=== PATIENT | female | born 1975 | race Caucasian/White ===

== ENCOUNTER → 2021-09-03 | Day surgery (SDC) | payer BC ==
[~2021-09-03] VITALS: Ht 165.1 cm; Wt 160.0 kg
[~2021-09-03] MED LIST: HYDROmorphone 2 MG/ML INJ. IVP PRN; IV RINGERS,LACTATED 1000ML 1,000 ML IV SCH; LIDOCAINE 2% PF 5 ML VIAL. ONE; MORPHINE SULFATE 2 MG/ML INJ. IVP PRN; PROCHLORPERAZINE 10 MG/2 ML VIAL. IVP PRN; PROPOFOL 10 MG/ML (20ML) VIAL. IV ONE; fentaNYL PF VIAL 100 MCG/2 ML VIAL IVP PRN
[2021-09-03 08:34] VITALS: BP 183/81
--- NOTE | 2021-09-03 09:16 | PREOP HP ---
DATE OF SERVICE: 09/03/2021 REQUESTING PHYSICIAN: Nelli Gore MD PRIMARY CARE PHYSICIAN: Nelli Gore MD REASON FOR PROCEDURE: Left upper quadrant pain, colon cancer screening and history of polyps. HISTORY OF PRESENT ILLNESS: This is a 45-year-old female who presents with left upper quadrant pain. She also has had some diarrhea as well as history of colon polyps. ALLERGIES: No known drug allergies. PAST MEDICAL HISTORY: Colon polyps. SOCIAL HISTORY: No tobacco, alcohol or IV drug abuse. MEDICATIONS: Metformin. REVIEW OF SYSTEMS: A 13-point review of systems was done, it was positive as per HPI, otherwise negative. PHYSICAL EXAMINATION: VITAL SIGNS: She is afebrile and her vital signs are stable. GENERAL: She is an obese female in no apparent distress. HEENT: Oropharynx clear. CARDIOVASCULAR: S1, S2. LUNGS: Clear. ABDOMEN: Normoactive bowel sounds, soft, nontender, nondistended. EXTREMITIES: No edema. NEUROLOGIC: Awake, alert and oriented x 3. ASSESSMENT AND PLAN: 1. History of colon polyps. 2. Left upper quadrant abdominal pain. We will proceed with upper endoscopy and colonoscopy for further evaluation. Risks and benefits including bleeding, perforation, non-diagnosis and sedation were explained and she has agreed to proceed. KARL DR: Timoteo TID: [id number]
[2021-09-03 10:20] VITALS: BP 144/89
--- NOTE | 2021-09-08 13:11 | PATHOLOGY ---
[facility] Accession Number: [id number] . 01 Material submitted: . PART A: small bowel - SMALL BOWEL BX PART B: ANTRUM - BX ANTRUM AND BODY. Modifiers: body PART C: esophagus - BX DISTAL ESOPHAGUS. Modifiers: distal PART D: cecum - BX CECAL POLYP PART E: ileum - BX TERMINAL ILEUM. Modifiers: TERMINAL PART F: colon - BX RIGHT COLON. Modifiers: right PART G: colon - DESCENDING COLON POLYP. Modifiers: descending PART H: colon - BX LEFT COLON. Modifiers: left . 01 Clinical history: . ABDOMINAL PAIN . 02 Diagnosis: A. Small bowel biopsy: - No diagnostic abnormalities. . B. Gastric biopsies, gastric antrum and gastric body: - Chronic gastritis, mild. . C. Esophageal biopsies, distal esophagus: - Reflux changes. . D. Colon biopsy, cecal polyp: - Hyperplastic polyp/prominent mucosal fold. . E. Terminal ileum biopsy: - No diagnostic abnormalities. . F. Colonic mucosa, right colon biopsy: - No diagnostic abnormalities. . G. Colon biopsy, descending colon polyp: - Hyperplastic polyp/prominent mucosal fold. . H. Colonic mucosa, left colon biopsies: - No diagnostic abnormalities. ([facility]; 09/08/2021) [facility] 09/08/2021 0925 Local . 02 Comment: Sections of the small bowel biopsy reveal segments of duodenal and small intestine mucosa. Where best oriented, the mucosal villi show no sprue-like changes or significant inflammatory changes. . Sections of the gastric biopsy reveal segments of gastric antral and antral/body transition mucosa showing congestion and mild chronic inflammation. A properly controlled immunoperoxidase stain for Helicobacter is negative for Helicobacter organisms. . Sections of the distal esophageal biopsy reveal a segment of hyperplastic squamous esophageal mucosa and segments of gastric mucosa showing mild to moderate chronic inflammation. The findings are consistent with reflux changes. There is no evidence of Ordonez's change, dysplasia, or malignancy. . Sections of the cecal polyp biopsy reveal segments of colonic mucosa consistent with hyperplastic polyp/prominent mucosal fold. There are no adenomatous changes or evidence of malignancy. . Sections of the terminal ileum biopsy reveal a segment of small intestine mucosa. Where best oriented, the mucosal villi show no sprue-like changes or significant inflammatory changes. . Sections of the right colon biopsy reveal segments of colonic mucosa containing a single mucosal-associated lymphoid aggregate. There is no evidence of a chronic destructive colitis, lymphocytic colitis, or collagenous colitis. . Sections of the descending colon polyp biopsy reveal segments of colonic mucosa consistent with hyperplastic polyp/prominent mucosal fold. There are no adenomatous changes or evidence of malignancy. . Sections of the left colon biopsy reveal segments of colonic mucosa containing two mucosal-associated lymphoid aggregates. There is no evidence of a chronic destructive colitis, lymphocytic colitis, or collagenous colitis. ([facility]; 09/08/2021) . Special stain performed: Immunoperoxidase stain for Helicobacter on B1 . 02 Electronically signed: . Mak Scott MD, Pathologist NPI- [id number] . 01 Gross description: . A. The specimen is received in formalin, labeled "Catie Monk, small bowel BX". Received are 4 segments of pale rodriguez tissue ranging in size from 0.2-0.5 cm in maximum dimensions. The specimen is entirely submitted in cassette A1. . B. The specimen is received in formalin, labeled "Catie Monk, BX antrum and body". Received are 2 segments of pale rodriguez tissue measuring 0.4 and 0.5 cm in maximum dimensions. The specimen is entirely submitted in cassette B1. . C. The specimen is received in formalin, labeled "Catie Monk, BX distal esophagus". Received are 3 segments of pale rodriguez tissue ranging in size from 0.2-0.4 cm in maximum dimensions. The specimen is entirely submitted in cassette C1. . D. The specimen is received in formalin, labeled "Catie Monk BX cecal polyp". Received are 2 segments of pale rodriguez tissue measuring 0.3 and 0.4 cm in maximum dimensions. The specimen is entirely submitted in cassette D1. . E. The specimen is received in formalin, labeled "Catie Monk BX terminal ileum". Received is a single segment of pale rodriguez tissue measuring 0.4 cm in maximum dimensions. The specimen is entirely submitted in cassette E1. . F. The specimen is received in formalin, labeled "Catie Monk, BX right colon". Received are 4 segments of pale rodriguez tissue ranging in size from 0.2-0.4 cm in maximum dimensions. The specimen is entirely submitted in cassette F1. . G. The specimen is received in formalin, labeled "Catie Monk, descending colon polyp". Received are 3 segments of pale rodriguez tissue ranging in size from 0.2-0.6 cm in maximum dimensions. The specimen is entirely submitted in cassette G1. . H. The specimen is received in formalin, labeled "Catie Monk, BX left colon". Received are 4 segments of pale rodriguez tissue ranging in size from 0.3-0.4 cm in maximum dimensions. The specimen is entirely submitted in cassette H1. ([facility]; 09/03/2021) N[facility]/NRI 09/03/2021 2042 Local . 02 Pathologist provided ICD-10: K29.50, K21.00, K63.5 . 02 CPT . 405826, 149483, 754204, 285636, 422496, 989395, 610777, [id number], [id number] Specimen Comment: A courtesy copy of this report has been sent to [phone] Specimen Comment: [id number] Specimen Comment: Report sent to / DR PIRES Performed at: 01 [facility] [address], [place], [place] [id number] MD Jd Salvador MD Phone: [phone] Performed at: 02 [facility] [address] [place], [place] [id number] MD Mak Scott MD Phone: [phone]
== END | disposition home or self-care (01) ==
LOC: ENDOS 07:36
PROVIDERS: ATTEND Internal Medicine Gastroenterology
DX: R10.12 Left upper quadrant pain (principal); R19.7 Diarrhea, unspecified; K21.00 Gastro-esophageal reflux disease with esophagitis, without bleeding; K29.50 Unspecified chronic gastritis without bleeding; K63.5 Polyp of colon; K64.0 First degree hemorrhoids; K63.89 Other specified diseases of intestine; K31.89 Other diseases of stomach and duodenum; E66.9 Obesity, unspecified; E11.9 Type 2 diabetes mellitus without complications; Z86.010 Personal history of colon polyps; Z79.899 Other long term (current) drug therapy; Z20.822 Contact with and (suspected) exposure to COVID-19
CPT/HCPCS: 43239; 45380; 81025; 87426; 88305; 88342; J2704

== ENCOUNTER 2021-10-15 11:10 | Emergency (ER) | payer BC ==
[~2021-10-15] VITALS: Ht 167.6 cm; Wt 152.0 kg
--- NOTE | 2021-10-15 12:08 | RAD ---
EXAM: Right knee, 4 views. HISTORY: Pain. COMPARISON: None. FINDINGS: 4 views of the right knee are obtained. There is no fracture, dislocation or subluxation. T here is mild medial compartment spurring. There is mild lateral patellofemoral compartment joint spac e narrowing with minimal lateral patellar tilting. There is no significant joint effusion. IMPRESSION: Mild medial and patellofemoral compartment osteoarthritis. No acute osseous finding. Electronically signed by: Astrid Kaufman MD (10/15/2021 12:06 PM) [id number]
--- NOTE | 2021-10-15 12:24 | PHYS DOC ---
Past Medical History Past Surgical History: No Surgical History General Adult EDM: Chief Complaint: KNEE INJURY HPI: HPI: Patient is a 46 year old female who presents to the ED today complaining of 9 out of 10 right knee pain, symptoms began 2 days ago, she states she started working out to lose weight and today she stepped on a step and developed significant pain on the back of her right knee. Patient denies falling. States the pain is worse on weightbearing. Denies anything relieving the pain. Describes the pain as throbbing and intermittent. Review of Systems: Review of Systems: Constitutional: Denies fever or chills. [][] Musculoskeletal: Reports right knee pain Integument: Denies rash. [] Neurologic: Denies headache, focal weakness or sensory changes. [] Psychiatric: Denies depression or anxiety. [] Heart Score: C/O Chest Pain: N/A Risk Factors: Risk Factors: DM, Current or recent (<one month) smoker, HTN, HLP, family history of CAD, obesity. Risk Scores: Score 0 - 3: 2.5% MACE over next 6 weeks - Discharge Home Score 4 - 6: 20.3% MACE over next 6 weeks - Admit for Clinical Observation Score 7 - 10: 72.7% MACE over next 6 weeks - Early Invasive Strategies Allergies: Allergies: Allergies Coded Allergies Type Severity Reaction Last Updated Verified No Known Drug Allergies 09/03/21 No Physical Exam: PE: Constitutional: Well developed, well nourished, no acute distress, non-toxic appearance. [] Skin: Warm, dry, no erythema, no rash. [] Back: No tenderness, no CVA tenderness. [] Extremities: Overweight patient, right knee with no obvious deformity, no tenderness, limited range of motion to the right knee, +2 right pedal pulse. Cap refill less than 2 seconds of right lower extremity Neurologic: Alert and oriented X 3, normal motor function, normal sensory function, no focal deficits noted. [] Psychologic: Affect normal, judgement normal, mood normal. [] Current Patient Data: Vital Signs: Vital Signs Date Time Temp Pulse Resp B/P (MAP) Pulse Ox O2 Delivery O2 Flow Rate FiO2 10/15/21 11:15 97.8 88 16 149/83 (105) 97 97.8 EKG: EKG: [] Radiology/Procedures: Radiology/Procedures: PROCEDURE: KNEE RIGHT 4V EXAM: Right knee, 4 views. HISTORY: Pain. COMPARISON: None. FINDINGS: 4 views of the right knee are obtained. There is no fracture, dislocation or subluxation. There is mild medial compartment spurring. There is mild lateral patellofemoral compartment joint space narrowing with minimal lateral patellar tilting. There is no significant joint effusion. IMPRESSION: Mild medial and patellofemoral compartment osteoarthritis. No acute osseous finding. Electronically signed by: Destiny Godfrey MD (10/15/2021 12:06 PM) [id number] DICTATED and SIGNED BY: DESTINY GODFREY MD DATE: 10/15/21 [id number] Course & Med Decision Making: Course & Med Decision Making Pertinent Labs and Imaging studies reviewed. (See chart for details) This is a 46-year-old female patient presented to the ED today with right knee pain that began 2 days ago. Right knee x-rays interpreted by radiologist were noted for DJD otherwise no acute findings. Jona bandage recommended to the right knee. Ice elevation encouraged. Provided orthopedic doctor for follow-up Alice Disclaimer: Alice Disclaimer: This electronic medical record was generated, in whole or in part, using a voice recognition dictation system. Departure Departure Impression: Primary Impression: Right knee pain Qualified Codes: M25.561 - Pain in right knee Additional Impression: Right knee DJD Qualified Codes: M17.11 - Unilateral primary osteoarthritis, right knee Disposition: HOME / SELF CARE / HOMELESS Condition: STABLE Referrals: HAYDEE PIRES (PCP) TRACY OSHEA Jr. DO follow up in one week Patient Instructions: Arthritis, Degenerative-Brief, Knee Pain, [id number] Additional Instructions: You were seen for right knee pain, your right knee x-rays were noted for arthritis otherwise no acute findings. Try to ice and elevate the extremity. Take the prescribed as needed for your pain. Follow-up with your primary care doctor or the orthopedic doctor in 1 week Scripts Methylprednisolone (MEDROL) 4 Mg Tab.ds.pk 1 PKG PO UD, #1 PKG Prov: TRAN [employer]E [employer] 10/15/21 Meloxicam (MOBIC) 7.5 Mg Tablet 1 TAB PO DAILY, #14 TAB 1 Refill Prov: TRAN VICENTE INTER[employer] RESEARCHER 10/15/21 TRAN VICENTE APRN Oct 15, 2021 12:24
[2021-10-15] MEDS ORDERED: MELO7.5T5 PO (12:28)
[2021-10-15] MEDS ORDERED: METH4TAB2 PO (12:28)
[2021-10-15] MEDS ORDERED: NAPROXEN 500 MG TABLET PO STA (12:33)
[2021-10-15] MEDS ORDERED: HYDROcodone/APAP 5/325MG 1 TAB TABLET PO ONE (12:45)
[2021-10-15 12:50] VITALS: BP 132/75
== END 2021-10-15 12:50 | disposition home or self-care (01) ==
LOC: ER 11:10
DX: M25.561 Pain in right knee (principal); M17.11 Unilateral primary osteoarthritis, right knee; G89.11 Acute pain due to trauma; W22.8XXA Striking against or struck by other objects, initial encounter; Y93.89 Activity, other specified; Y92.89 Other specified places as the place of occurrence of the external cause; Y99.8 Other external cause status
CPT/HCPCS: 73564; 99283